=== PATIENT | female | born 1995 | race Caucasian/White ===

== ENCOUNTER 2016-09-12 15:32 | Emergency (ER) | payer OTHER ==
[~2016-09-12] VITALS: Ht 165.1 cm; Wt 57.9 kg
[~2016-09-12 15:32] MED LIST: HYDR-5688 PO
[2016-09-12 15:50] VITALS: Ht 165.1 cm; Wt 57.9 kg
[2016-09-12] MEDS ORDERED: SODIUM CHLORIDE 0.9% 1000ML 1,000 ML IV STA (16:47)
[2016-09-12] MEDS ORDERED: SODIUM CHLORIDE 0.9% 1000ML 1,000 ML IV ONE (16:47)
[2016-09-12 17:48] LABS: BASO % 0.4 %; BASO ABS # 0.04 K/uL (0-0.2); COMPLETE YES; EOS % 2.2 %; HEMATOCRIT 40.4 % (37-47); IG% 0.2 %; LYMPH % 15.2 %; MEAN CELL VOLUME 78.1 fL (80-100); MEAN CORPUSCULAR HEMOGLOBIN 27.1 pg (25-34); MEAN CORPUSCULAR HGB CONC 34.7 g/dl (32-36); MEAN PLATELET VOLUME 10.5 fL (7.4-10.4); MONO % 7.9 %; NEUT % 74.1 %; PLATELET COUNT 283 K/uL (130-400); RED BLOOD COUNT 5.17 M/uL (4.2-5.4)
[2016-09-12 17:57] LABS: ALT/SGPT 55 U/L (12-78); AST/SGOT 24 U/L (15-37); BLOOD UREA NITROGEN 7 mg/dl (7-18); BUN/CREATININE RATIO 12.3 (10-20); CARBON DIOXIDE 23 mmol/L (21-32); CHLORIDE 106 mmol/L (98-107); CREATININE 0.56 mg/dl (0.60-1.20); GLUCOSE 80 mg/dl (70-99); POTASSIUM 3.7 mmol/L (3.5-5.1); SODIUM 139 mmol/L (136-145)
[2016-09-12 17:59] LABS: ALKALINE PHOSPHATASE 60 U/L (45-117)
[2016-09-12 18:18] LABS: PREG INTERNAL NEGATIVE QC NEG CLEAR BACKGROUND; PREG INTERNAL POSITIVE QC POS CONTROL LINE
[2016-09-12] MEDS ORDERED: ONDANSETRON INJ 2 MG/ML 2 ML VIAL IV STA (18:19)
--- NOTE | 2016-09-12 18:22 | EMERGENCY ROOM VISIT NOTE ---
History Report prepared by Pérez: Kelli Rosado Under the Supervision of: Dr. Richie Rey M.D. First contact with patient: 16:36 Chief Complaint: VOMITING Stated Complaint: NAUSEA, VOMITING Nursing Triage Summary: Pt c/o nausea starting this morning emesis x2 History of Present Illness The patient is a 21 year old female who presents to the Emergency Room with complaints of intermittent vomiting since this morning. She has been feeling nauseated for the past couple of days. This morning she was nauseated and vomited twice. She notes abdominal pain. The patient had an appendectomy a couple of weeks ago. She states that her incisions are healing well. She denies urinary symptoms, diarrhea, headache, and sore throat. She denies any sick contacts. She was diagnosed with IBS this summer. Source of History: patient Onset: this morning Position: abdomen Quality: other (vomiting) Timing: intermittent Associated Symptoms: + abdominal pain, + nausea, No diarrhea, No headache, No sorethroat, No urinary symptoms Review of Systems See HPI for pertinent positives & negatives. A total of 10 systems reviewed and were otherwise negative. Past Medical & Surgical Medical Problems: (1) No known problems Surgical Problems: (1) History of wisdom tooth extraction Old medical records were reviewed. Nurse's notes were reviewed and I agree with. Denies history of Family History FH: cancer Social History Smoking Status: Current Every Day Smoker Alcohol Use: occasionally Drug Use: none Marital Status: in relationship Housing Status: lives with roommate Occupation Status: [employer] student Current/Historical Medications Scheduled PRN Hydrocodone/Acetaminophen 5MG/325MG ([place] 5MG/325MG), 1 TABLET PO Q4 PRN for Pain Allergies Coded Allergies: Penicillins (Verified Allergy, Unknown, FATHER IS ALLERGIC, HAS NEVER HAD IT. WANTS TO AVOID , 08/25/16) Physical Exam Vital Signs Date Time Temp Pulse Resp B/P Pulse Ox O2 Delivery O2 Flow Rate FiO2 09/12/16 20:19 67 16 116/52 99 Room Air 09/12/16 15:50 37.1 94 18 111/68 99 Room Air Physical Exam General: Well developed well nourished non ill appearing slender young female in no acute distress, breathing comfortably on room air. Normal speech HEENT: Normal cephalic atraumatic. Pupils are equal round and reactive to light. Extraocular movements are intact. Oropharynx is pink with moist mucous membranes. No swelling of the mouth lips or tongue. Neck: Supple with a midline trachea. No meningeal signs or stiffness, no JVD or bruits. No Stridor. Chest: Clear to auscultation bilaterally. No wheezes or rhonchi. No increased work of breathing. Heart: regular rate and rhythm. Abdomen: Soft minimal tenderness in the right, well healing post surgical incision no evidence of infection or dehiscence, nondistended without rebound guarding or rigidity. Extremities: No cyanosis clubbing or edema. No calf tenderness or assymetry Spine/Back. Non tender to palpation. No CVA tenderness Skin: Good turgor without rashes. Neurologic exam: Cranial nerves two through 12 are intact. Motor and sensation are intact and symmetrical throughout. Medical Decision & Procedures ER Provider Diagnostic Interpretation: Radiology results as stated below per my review and radiologist interpretation: Limited ultrasound ECTOPIC CLINICAL HISTORY: eval for ectopic, post -op hematoma pain TECHNIQUE: Pelvic ultrasound COMPARISON STUDY: None FINDINGS: Single intrauterine gestational sac. A yolk sac is identified. A pole is not seen. In the secondary to the early gestational age. Right ovary measures 2.8 cm at maximum dimension. Left ovary measures 2.4 cm in maximum dimension. 2 cm complex corpus luteum cyst on the left. Normal vascular flow is confirmed to both ovaries. IMPRESSION: 1. Single intrauterine gestational sac. 2. A pole is not confirmed at this time, although this is most likely secondary to the early gestational age approximately 5 weeks. 3. Follow-up ultrasound at later date is recommended to confirm viability. 4. 2 cm corpus luteum cyst left ovary. Electronically signed by: Ti Lerma M.D. 09/12/2016 8:34 PM Laboratory Results 09/12/16 17:05 Red Blood Count 5.17, Mean Corpuscular Volume 78.1, Mean Corpuscular Hemoglobin 27.1, Mean Corpuscular Hemoglobin Concent 34.7, Mean Platelet Volume 10.5, Neutrophils (%) (Auto) 74.1, Lymphocytes (%) (Auto) 15.2, Monocytes (%) (Auto) 7.9, Eosinophils (%) (Auto) 2.2, Basophils (%) (Auto) 0.4, Neutrophils # (Auto) 6.81, Lymphocytes # (Auto) 1.40, Monocytes # (Auto) 0.73, Eosinophils # (Auto) 0.20, Basophils # (Auto) 0.04 09/12/16 17:05 Test 09/12/16 17:00 09/12/16 17:05 Urine Color YELLOW Urine Appearance CLEAR (CLEAR) Urine pH 6.0 (4.5-7.5) Urine Specific [place] 1.021 (1.000-1.030) Urine Protein NEG (NEG) Urine Glucose (UA) NEG (NEG) Urine Ketones NEG (NEG) Urine Occult Blood TRACE (NEG) Urine Nitrite NEG (NEG) Urine Bilirubin NEG (NEG) Urine Urobilinogen NEG (NEG) Urine Leukocyte Esterase NEG (NEG) Urine WBC (Auto) 1-5 /hpf (0-5) Urine RBC (Auto) 0-4 /hpf (0-4) Urine Hyaline Casts (Auto) 1-5 /lpf (0-5) Urine Epithelial Cells (Auto) >30 /lpf (0-5) Urine Bacteria (Auto) NEG (NEG) White Blood Count 9.20 K/uL (4.8-10.8) Red Blood Count 5.17 M/uL (4.2-5.4) Hemoglobin 14.0 g/dL (12.0-16.0) Hematocrit 40.4 % (37-47) Mean Corpuscular Volume 78.1 fL (80-100) Mean Corpuscular Hemoglobin 27.1 pg (25-34) Mean Corpuscular Hemoglobin Concent 34.7 g/dl (32-36) Platelet Count 283 K/uL (130-400) Mean Platelet Volume 10.5 fL (7.4-10.4) Neutrophils (%) (Auto) 74.1 % Lymphocytes (%) (Auto) 15.2 % Monocytes (%) (Auto) 7.9 % Eosinophils (%) (Auto) 2.2 % Basophils (%) (Auto) 0.4 % Neutrophils # (Auto) 6.81 K/uL (1.4-6.5) Lymphocytes # (Auto) 1.40 K/uL (1.2-3.4) Monocytes # (Auto) 0.73 K/uL (0.11-0.59) Eosinophils # (Auto) 0.20 K/uL (0-0.5) Basophils # (Auto) 0.04 K/uL (0-0.2) RDW Standard Deviation 37.6 fL (36.4-46.3) RDW Coefficient of Variation 13.4 % (11.5-14.5) Immature Granulocyte % (Auto) 0.2 % Immature Granulocyte # (Auto) 0.02 K/uL (0.00-0.02) Anion Gap 10.0 mmol/L (3-11) Est Creatinine Clear Calc Drug Dose 144.2 ml/min Estimated GFR () > 150.0 Estimated GFR (Non- 134.2 BUN/Creatinine Ratio 12.3 (10-20) Calcium Level 9.0 mg/dl (8.5-10.1) Total Bilirubin 0.5 mg/dl (0.2-1) Direct Bilirubin 0.1 mg/dl (0-0.2) Aspartate Amino Transf (AST/SGOT) 24 U/L (15-37) Alanine Aminotransferase (ALT/SGPT) 55 U/L (12-78) Alkaline Phosphatase 60 U/L (45-117) Total Protein 7.7 gm/dl (6.4-8.2) Albumin 4.1 gm/dl (3.4-5.0) Lipase 110 U/L (73-393) Human Chorionic Gonadotropin, Qual POS (NEG) Human Chorionic Gonadotropin, Quant 30202 mIU/mL Laboratory studies as stated above per my review. Medications Administered Medications (Trade) Dose Ordered Sig/Kelly Route Start Time Stop Time Status Last Admin Dose Admin Sodium Chloride 1,000 ml @ 999 mls/hr Q1H1M STAT IV 09/12/16 16:47 09/12/16 17:47 DC 09/12/16 17:15 999 MLS/HR Sodium Chloride (Nss 1000ml) 1,000 ml @ 200 mls/hr Q5H ONCE IV 09/12/16 16:47 09/12/16 21:46 09/12/16 18:57 200 MLS/HR Ondansetron HCl (Zofran Inj) 4 mg NOW STAT IV 09/12/16 18:19 09/12/16 18:20 DC 09/12/16 18:27 4 MG ED Course 1636: Past medical records reviewed. The patient was evaluated in room B8, and a complete history and physical examination were performed. 1647: NSS 1000 ml @ 200 mls/hr IV, NSS 1000 ml @ 999 mls/hr IV 1740: I reassessed the patient at this time. I updated her on her results. 1818: Zofran 4 mg IV 1929: I updated the patient. She is going to ultrasound. 2028: I reassessed the patient at this time. She is feeling better and resting comfortably. 2039: I spoke with Dr. Flowers of [facility] ob-strip feeder. We discussed the patient's results and treatment plan and he will follow-up with the patient in the office. 2043: I reassessed the patient at this time. She is feeling better and resting comfortably. I discussed the results and treatment plan with the patient. I answered all pertaining questions that she had. She expressed understanding and verbalized agreement. The patient will be discharged home. Medical Decision Differential diagnoses includes vomiting, dehydration, infection, post operative complication, . This patient comes in as described above. She's had some nausea and some lower abdominal discomfort. She looks well on exam. Her abdomen is benign . her skin surgical incisions are healing well with any redness or warmth. She was found to have a positive urine test. IV access had been established and she was hydrated with iv normal saline. she was given Zofran 4 mg IV for nausea. I did add a quantitative beta hCG as well as a blood type and ultrasound area she was reassessed frequently. Her quantitative hCG is in the 13,000 range. Her ultrasound shows a gestational sac likely early IUP about 5 weeks there is a corpus luteum cyst. Her blood type is B+. She's had no vaginal bleeding. Her abdominal exam is minimally tender. She's had no significant electrode or metabolic abnormalities otherwise is nothing to suggest infection. It appears that she has an early IUP. She did have a negative test on her urine on August 25. It is possible that she was too early to be detected at that point. I did discuss case Dr. Roberts, he said they can follow up with her in the office. I recommend the patient start on vitamins. She tells me that she will likely choose to terminate the . I told her that she should follow up with [facility] tomorrow for recheck and if she decides to go that route they can start making the arrangements as she will likely need to go out of town for that. She was encouraged to return ER if: increasing pain, vaginal bleeding, worsening of symptoms, any new problems concerns. She is happy with plan and was discharged to home. Consults Time Called: 2035 Consulting Physician: Dr. Flowers Returned Call: [address] Flowers of [facility] ob-strip feeder. We discussed the patient's results and treatment plan and he will follow-up with the patient in the office. Impression Primary Impression: RLQ abdominal pain Additional Impression: Scribe Attestation The scribe's documentation has been prepared under my direction and personally reviewed by me in its entirety. I confirm that the note above accurately reflects all work, treatment, procedures, and medical decision making performed by me. Departure Information Dispostion Home / Self-Care Referrals [facility] (PCP) Mariana Flowers M.D. Forms HOME CARE DOCUMENTATION FORM, IMPORTANT VISIT INFORMATION Patient Instructions A Signature Page, My [facility] Additional Instructions Rest. Drink plenty of fluids. Take a vitamin once a day-you can buy at [employer] of the grocery store Return if: Increasing pain, vaginal bleeding, worsening of symptoms, any new problems or concerns Follow-up with the [facility] clinic or [facility] this week for recheck Contact information for for Dr. Flowers for [facility] OB/ EVENT SALES ASSISTANT given below
[2016-09-12 19:47] LABS: URINE APPEARANCE CLEAR (CLEAR); URINE BILIRUBIN NEG (NEG); URINE COLOR YELLOW; URINE EPITHELIAL CELL AUTO >30 /lpf (0-5); URINE NITRITE NEG (NEG); URINE SPECIFIC GRAVITY 1.021 (1.000-1.030); UROBILINOGEN NEG (NEG)
[2016-09-12 19:50] LABS: MANUAL MICROSCOPIC REQUIRED? NO; REVIEW REQ? NO
--- NOTE | 2016-09-12 20:35 | DIAGNOSTIC IMAGING REPORT ---
Limited ultrasound ECTOPIC CLINICAL HISTORY: eval for ectopic, post -op hematoma pain TECHNIQUE: Pelvic ultrasound COMPARISON STUDY: None FINDINGS: Single intrauterine gestational sac. A yolk sac is identified. A pole is not seen. In the secondary to the early gestational age. Right ovary measures 2.8 cm at maximum dimension. Left ovary measures 2.4 cm in maximum dimension. 2 cm complex corpus luteum cyst on the left. Normal vascular flow is confirmed to both ovaries. IMPRESSION: 1. Single intrauterine gestational sac. 2. A pole is not confirmed at this time, although this is most likely secondary to the early gestational age approximately 5 weeks. 3. Follow-up ultrasound at later date is recommended to confirm viability. 4. 2 cm corpus luteum cyst left ovary. Electronically signed by: Ti Lerma M.D. 09/12/2016 8:34 PM
[2016-09-12 21:00] VITALS: BP 132/63; PULSE 84; TEMP 36.9; O2SAT 98
== END 2016-09-12 21:00 | disposition home or self-care (01) ==
LOC: C.EDB 15:33
DX: O99.89 Other specified diseases and conditions complicating pregnancy, childbirth and the puerperium (principal); R10.31 Right lower quadrant pain; F17.200 Nicotine dependence, unspecified, uncomplicated; Z3A.01 Less than 8 weeks gestation of pregnancy